=== PATIENT | male | born 1955 | race Caucasian/White ===

== ENCOUNTER 2018-09-03 15:03 | Emergency (ER) | payer OTHER ==
[~2018-09-03] VITALS: Ht 180.3 cm; Wt 100.7 kg
[2018-09-03] MEDS ORDERED: LANTUS SOL100 UNIT/1 (15:17)
[2018-09-03] MEDS ORDERED: HUMALOG100 UNIT/1 (15:17)
[2018-09-03] MEDS ORDERED: COZAAR25 MG (15:18)
[2018-09-03] MEDS ORDERED: NEURONTIN300 MG (15:18)
[2018-09-03] MEDS ORDERED: TOPROL XL50 M1 (15:19)
[2018-09-03] MEDS ORDERED: ISOSORBIDE DINI30 MG (15:19)
[2018-09-03] MEDS ORDERED: LIPITOR40 MG (15:19)
[2018-09-03] MEDS ORDERED: ALLOPURINOL300 MG (15:19)
[2018-09-03] MEDS ORDERED: HYDROCHLOROTHIA25 MG (15:20)
[2018-09-03] MEDS ORDERED: JANUMET 50-1,01 EACH (15:20)
[2018-09-03] MEDS ORDERED: AVAPRO300 MG (15:20)
== END 2018-09-03 20:19 | disposition home or self-care (01) ==
LOC: ER 15:03
DX: E11.622 Type 2 diabetes mellitus with other skin ulcer (principal); L97.828 Non-pressure chronic ulcer of other part of left lower leg with other specified severity

== ENCOUNTER 2020-04-03 12:06 | Outpatient (CLI) | payer OTHER ==
[~2020-04-03 12:06] MED LIST: ALLOPURINOL300 MG; AVAPRO300 MG; COZAAR25 MG; HUMALOG100 UNIT/1; HYDROCHLOROTHIA25 MG; ISOSORBIDE DINI30 MG; JANUMET 50-1,01 EACH; LANTUS SOL100 UNIT/1; LIPITOR40 MG; NEURONTIN300 MG; TOPROL XL50 M1
== END 2020-04-03 12:36 | disposition home or self-care (01) ==
LOC: NUCLEAR 12:06
PROVIDERS: ATTEND Internal Medicine Rheumatology
DX: M81.0 Age-related osteoporosis without current pathological fracture (principal)